=== PATIENT | female | born 1985 ===

== ENCOUNTER 2023-07-26 10:58 | Inpatient (IN) | payer SELFPAY ==
[~2023-07-26] VITALS: Ht 167.6 cm; Wt 64.9 kg
[2023-07-26] MEDS ORDERED: AMOX-CLAV 875-1 EAC5 PO (12:46)
[2023-07-26] MEDS ORDERED: MONDOXYNE NL100 MG PO (12:46)
[2023-07-26] MEDS ORDERED: Morphine Sulfate 4 MG/1 ML Injection IV ONE (13:00)
[2023-07-26] MEDS ORDERED: Ondansetron HCl 2 MG / ML 2ML Vial IV ONE (13:00)
[2023-07-26 13:32] LABS: Source, Urine Clean Catch
[2023-07-26 13:54] LABS: BASOPHILS ABSOLUTE AUTO 0.08 K/mm3 (0.00-0.23); BASOPHILS PERCENT AUTO 1 % (0-2); EOSINOPHILS ABSOLUTE AUTO 0.02 K/mm3 (0.00-0.68); EOSINOPHILS PERCENT AUTO 0 % (0-6); Hematocrit 37.2 % (33.0-51.0); Hemoglobin 12.7 g/dL (11.5-16.0); IMMATURE GRAN ABSOLUTE AUTO 0.09 K/mm3 (0.00-0.10); IMMATURE GRAN PERCENT AUTO 1 % (0-1); LYMPHOCYTES ABSOLUTE AUTO 1.62 K/mm3 (0.84-5.20); LYMPHOCYTES PERCENT AUTO 9 % (21-46); MONOCYTES ABSOLUTE AUTO 1.22 K/mm3 (0.16-1.47); MONOCYTES PERCENT AUTO 7 % (4-13); Mean Corpuscular HGB Conc 34.1 g/dL (31.5-36.5); Mean Corpuscular Volume 109 fL (80-100); Mean Platelet Volume 9.7 fL (9.1-12.4); NEUTROPHILS PERCENT AUTO 82 % (41-73); Platelet Count 260 K/mm3 (150-400); RDW Coefficient Variation 12.5 % (11.7-14.2); RDW Standard Deviation 50.2 fL (35.1-46.3); Red Blood Cell Count 3.43 M/mm3 (3.80-5.20); White Blood Cell Count 17.23 K/mm3 (4.00-11.30)
[2023-07-26 13:59] LABS: Bilirubin, Urine Neg (Neg); Blood, Urine Neg (Neg); Glucose Qualitative, Urine Neg (Neg); Ketones, Urine 2+ (Neg); Leukocyte Esterase, Urine Neg (Neg); Nitrite, Urine Neg (Neg); Protein, Urine Neg (Neg); Urobilinogen, Urine NORM (Normal)
[2023-07-26 14:00] LABS: Appearance, Urine Clear (Clear); Color, Urine Yellow (P-Yellow)
[2023-07-26 14:02] LABS: Albumin, Blood 3.2 g/dL (3.4-5.0); Albumin/Globulin Ratio 0.8 (0.8-1.8); Bilirubin, Total 0.6 mg/dL (0.1-1.0); Bun/Creatinine Ratio 9.5 (12.0-20.0); Calcium, Blood 9.1 mg/dL (8.5-10.1); Creatinine, Blood 0.53 mg/dL (0.40-1.00); Potassium, Blood 3.7 mmol/L (3.5-5.5); Total Protein, Blood 7.2 g/dL (6.4-8.2)
[2023-07-26] MEDS ORDERED: Ondansetron HCl 2 MG / ML 2ML Vial IV PRN (15:55)
[2023-07-26] MEDS ORDERED: Acetaminophen 500 MG Tab PO PRN (16:00)
[2023-07-26] MEDS ORDERED: Morphine Sulfate 4 MG/1 ML Injection IV PRN (16:00)
[2023-07-26] MEDS ORDERED: OxyCODONE HCL 5 MG TAB PO PRN (16:00)
[2023-07-26] MEDS ORDERED: Polyethylene Glycol 3350 17 gm PO PRN (16:00)
[2023-07-26] MEDS ORDERED: Ampicillin Sod/Sulbactam Sod 3 GM in NS 100 ML IV SCH (16:15)
[2023-07-26] MEDS ORDERED: Vancomycin HCL 1,500 MG in NS 250 ML IV SCH (17:00)
--- NOTE | 2023-07-26 17:26 | NUR ---
PT ARRIVED TO ROOM AT 1715 VIA CART. AOX4 AND COOPERTIVE OF CARE. PT IS INDEPENDENT IN ROOM AND CAN CALL APPROPRIATELY. NO DISTRESS NOTED CALL LIGHT WITHIN REACH.
[2023-07-26 19:06] VITALS: BP 132/98
[2023-07-26] MEDS ORDERED: NS 250 ML IV PRN (22:15)
[2023-07-27] MEDS ORDERED: Vancomycin HCL 1,000 MG in NS 100 ML IV SCH (01:00)
[2023-07-27 03:08] VITALS: BP 107/68
[2023-07-27 05:35] LABS: Hemoglobin 12.7 g/dL (11.5-16.0); Mean Corpuscular HGB 36.7 pg (26.0-34.0); Mean Corpuscular HGB Conc 34.3 g/dL (31.5-36.5); Mean Corpuscular Volume 107 fL (80-100); Mean Platelet Volume 9.6 fL (9.1-12.4); Platelet Count 264 K/mm3 (150-400); RDW Coefficient Variation 12.5 % (11.7-14.2); RDW Standard Deviation 49.1 fL (35.1-46.3); Red Blood Cell Count 3.46 M/mm3 (3.80-5.20)
[2023-07-27 06:29] LABS: Albumin, Blood 2.9 g/dL (3.4-5.0); Anion Gap 9 mmol/L (3-11); Blood Urea Nitrogen 6 mg/dL (8-24); Bun/Creatinine Ratio 12.2 (12.0-20.0); CO2, Blood 26 mmol/L (21-32); Calcium, Blood 9.3 mg/dL (8.5-10.1); Chloride, Blood 110 mmol/L (98-108); Creatinine, Blood 0.49 mg/dL (0.40-1.00); Glomerular Filtration Rate 125 (60-); Glucose, Blood 101 mg/dL (70-99); Magnesium, Blood 1.8 mg/dL (1.6-2.4); Phosphorus, Blood 3.7 mg/dL (2.5-4.9); Potassium, Blood 3.7 mmol/L (3.5-5.5); Sodium, Blood 141 mmol/L (136-145)
[2023-07-27 07:13] VITALS: BP 130/99
--- NOTE | 2023-07-27 07:34 | NUR ---
SHIFT SUMMARY PT A&OX4 AND PLEASANT. NO ACUTE CHANGES. CONTINUING IV ABX. VSS. PT REPORTS IMPROVMENT IN VAGINAL ABSCESS AND DECREASED BLEEDING. BED IN LOWEST POSITION AND CALL LIGHT IN REACH.
[2023-07-27] MEDS ORDERED: Enoxaparin 40 MG/0.4 ML SYR SC SCH (09:00)
[2023-07-27] MEDS ORDERED: Thiamine HCl 100 MG Tab PO SCH (09:00)
[2023-07-27] MEDS ORDERED: Multivitamins 1 Tab PO SCH (09:00)
[2023-07-27 14:57] VITALS: BP 121/85
[2023-07-27 16:54] LABS: Vancomycin, Trough 13.2 ug/mL (5.0-10.0)
--- NOTE | 2023-07-27 17:02 | NUR ---
PT AOX4 AND COOPERATIVE OF CARE. PT IS DOING WELL REDNESS IN GROIN AREA IS HARDLY NOTICEABLE AND SWELLING VAGINALLY HAS IMPROVED. PT STATES SHE IS ABLE TO SIT WITHOUT PAIN. PT INDEPENDENT IN ROOM AND IS ABLE TO MAKE NEEDS KNOWN. CALL LIGHT WITHIN REACH WILL CONTINUE TO MONITOR.
[2023-07-27 19:48] VITALS: BP 117/76
[2023-07-27] MEDS ORDERED: Lactobacil 2-S.Thermo-Bifido 1 1 Cap PO SCH (21:00)
[2023-07-28 03:20] VITALS: BP 135/111
[2023-07-28 04:55] LABS: Hemoglobin 12.5 g/dL (11.5-16.0); Mean Corpuscular HGB Conc 33.8 g/dL (31.5-36.5); Mean Corpuscular Volume 107 fL (80-100); Mean Platelet Volume 9.3 fL (9.1-12.4); Platelet Count 297 K/mm3 (150-400); RDW Coefficient Variation 12.3 % (11.7-14.2); RDW Standard Deviation 48.7 fL (35.1-46.3); Red Blood Cell Count 3.47 M/mm3 (3.80-5.20); White Blood Cell Count 8.92 K/mm3 (4.00-11.30)
[2023-07-28 05:32] LABS: Bun/Creatinine Ratio 9.5 (12.0-20.0); Calcium, Blood 8.9 mg/dL (8.5-10.1); Creatinine, Blood 0.53 mg/dL (0.40-1.00); Potassium, Blood 3.8 mmol/L (3.5-5.5)
[2023-07-28 07:30] VITALS: BP 125/102
[2023-07-28 07:40] VITALS: BP 141/100
--- NOTE | 2023-07-28 08:20 | NUR ---
pt in good spirit, excited to take shower in pm, ambulated with spouse in hallway, tolerated abx well, reports decrease swelling to pelvic area with some swelling and tenderness to lower r pelvic area. 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 Fall precautiions in place, call light w/n reach.
[2023-07-28] MEDS ORDERED: ACET500 PO (09:42)
--- NOTE | 2023-07-28 10:26 | NUR ---
DISHCARGE SUMMARY PATIENT DISCHARGED THIS SHIFT WITH MALE DIRECTOR NON PROFIT IN ROOM TO DRIVE. IV REMOVED WITHOUT COMPLICATION. DISCHARGE PACKET GIVEN AND REVIEWED, ABLE TO DO TEACHBACK, VERBALIZED UNDERSTANDING. NO ABX PRESCRIBED, PT HAD SOME FROM URGENT CARE VISIT DAY BEFORE ADMIT, DOC INSTRUCTED HER TO TAKE REMAINING DOSES PREVIOUSLY INSTRUCTED. A/O X4.
[2023-07-28] MEDS ORDERED: Vancomycin HCL 1,000 MG in NS 100 ML IV SCH (11:00)
[2023-07-28 18:32] LABS: APTIMA MEDIA TYPE Unisex Swab; C. TRACHOMATIS BY TMA Negative (Negative); N. GONORRHOEAE BY TMA Negative (Negative); SPECIMEN SOURCE Not Provided
== END 2023-07-28 09:53 | disposition home or self-care (01) | DRG 872 ==
LOC: ER 10:58 → MEDS 15:54 → ER 17:09 → MEDS 17:17
PROVIDERS: Nurse Practitioner; ADMIT Internal Medicine
PROC: 0U9L0ZZ Drainage of Vestibular Gland, Open Approach (ICD-10-PCS; principal; 2023-07-26)
PROC: 3E03329 Introduction of Other Anti-infective into Peripheral Vein, Percutaneous Approach (ICD-10-PCS; 2023-07-26)
DX: A41.9 Sepsis, unspecified organism (principal); N75.1 Abscess of Bartholin's gland; F10.20 Alcohol dependence, uncomplicated; N76.2 Acute vulvitis; Z72.0 Tobacco use
CPT/HCPCS: 36415; 56420; 80048; 80053; 80069; 80202; 81003; 81025; 83605; 83735; 85025; 85027; 87491; 87591; 96374-59; 96375-59; 99284-25; A9270; J0295; J1650; J2270; J2405; J3370; J7050

== ENCOUNTER → 2024-03-03 | Outpatient (CLI) | payer OTHER ==
[~2024-03-03] MED LIST: ACET500 PO; AMOCLA875 PO; AMOX-CLAV 875-1 EAC5 PO; BACTRIM DS TAB1 EAC6 PO; HYDR1TAB94 PO; MONDOXYNE NL100 MG PO; VSL#3 112.5B1 EACH PO
== END | disposition home or self-care (01) ==
LOC: LAB 17:01 → LAB SHORT 17:01
DX: N75.1 Abscess of Bartholin's gland (principal)
CPT/HCPCS: 87070; 87075; 87076; 87077; 87185; 87205

== ENCOUNTER 2024-04-03 09:23 | Emergency (ER) | payer OTHER ==
[~2024-04-03] VITALS: Ht 165.1 cm; Wt 73.0 kg
[2024-04-03 09:51] VITALS: BP 136/110
[2024-04-03] MEDS ORDERED: BACTRIM DS TAB1 EAC1 PO (14:37)
== END 2024-04-03 15:08 | disposition home or self-care (01) ==
LOC: ER 09:23
DX: N75.1 Abscess of Bartholin's gland (principal); N76.4 Abscess of vulva; F17.210 Nicotine dependence, cigarettes, uncomplicated
CPT/HCPCS: 56420; 99282-25